=== PATIENT | female | born 1935 | race American Indian/Alaskan Native ===

== ENCOUNTER 2018-11-20 23:50 | Emergency (ER) | payer MEDICARE ==
--- NOTE | 2018-11-21 00:46 | Emergency Department Report ---
HPI - General Chief Complaint: Extremity Injury, Lower Time Seen by Provider: 11/21/18 00:14 - HPI HPI: 83-year-old -[place] female presents to the emergency department from home the complaint of bilateral lower extremity pain and swelling. Overall, the patient says that this has been going on for the past month. However it has gotten much worse over the past 6 hours. The right leg is worse than the left. She has bilateral intermittent lower extremity swelling. She denies any skin color change, rash, warmth, lesions. She has a past medical history of asthma, DVT from 4 years ago not on anticoagulation, and some type of "heart problems." She has taken some Tylenol for her symptoms with some transient relief. No recent travel or sick contacts at home. ED Past Medical Hx - Past Medical History Previous Medical History?: Yes Hx Deep Vein Thrombosis: Yes Hx Asthma: Yes Additional medical history: heart probs - Surgical History Past Surgical History?: No - Social History Smoking Status: Never Smoker Substance Use Type: None - Medications Home Medications: Home Medications Medication Instructions Recorded Confirmed Last Taken Type Acetaminophen/Codeine [Tylenol 1 tab PO Q8H PRN #10 tab 11/21/18 Unknown Rx /Codeine # 3 tab] ED Review of Systems ROS: Stated complaint: RIGHT LEG CRAMPS X 6HOURS Other details as noted in HPI Comment: All other systems reviewed and negative Constitutional: denies: chills, fever Eyes: denies: eye pain, vision change ENT: denies: ear pain, throat pain Respiratory: denies: cough, shortness of breath Cardiovascular: edema. denies: chest pain Gastrointestinal: denies: abdominal pain, vomiting Genitourinary: denies: dysuria, discharge Musculoskeletal: arthralgia, myalgia Skin: denies: rash, lesions Neurological: denies: headache, weakness Physical Exam - Physical Exam Vital Signs: Vital Signs 11/20/18 23:51 Temperature 98.3 F Pulse Rate 86 Respiratory 18 Rate Blood Pressure 171/67 O2 Sat by Pulse 98 Oximetry Physical Exam: GENERAL: The patient is well-developed well-nourished. HENT: Normocephalic. Atraumatic. Patient has moist mucous membranes. EYES: Extraocular motions are intact. NECK: Supple. Trachea is midline. CHEST/LUNGS: Clear to auscultation. There is no respiratory distress noted. HEART/CARDIOVASCULAR: Regular. There is no tachycardia. There is no murmur. ABDOMEN: Abdomen is soft, nontender. Patient has normal bowel sounds. There is no abdominal distention. SKIN: Skin is warm and dry. 1+ pitting edema to the bilateral lower extremity swelling. NEURO: The patient is awake, alert, and oriented. The patient is cooperative. The patient has no focal neurologic deficits. Normal speech. MUSCULOSKELETAL: There is some tenderness to palpation to the posterior left knee and the right calf. There is no limitation range of motion. ED Course Vital Signs 11/20/18 23:51 Temperature 98.3 F Pulse Rate 86 Respiratory 18 Rate Blood Pressure 171/67 O2 Sat by Pulse 98 Oximetry ED Medical Decision Making - Lab Data Result diagrams: 11/21/18 00:49 11/21/18 00:49 - Radiology Data Radiology results: report reviewed Renal ultrasound. 11/21/2018. HISTORY: Acute renal insufficiency. FINDINGS: Right kidney measures 9.3 cm. Left kidney measures 8.9 cm. Mild fullness is noted at the right renal collecting system. The left kidney contains a 2.3 cm cyst. Incidentally noted is a 2.8 cm splenic cyst. The bladder is moderately distended. IMPRESSION: 1. Mild fullness of the right renal collecting system may be on the basis of bladder distention. 2. Benign-appearing cysts of the left kidney and s pleen. - Medical Decision Making This patient presents to the emergency department with the complaint of bilateral leg pain with right greater than left. On examination she does have some mild pitting edema to bilateral lower extremities. She has tenderness to palpation of the right calf and the posterior left knee. No rash, lesions, fluctuance, warmth, erythema. Patient has no complaints of any shortness of breath, nausea, vomiting, chest pain, back pain. She describes the pains as a cramping discomfort. Some blood work was obtained to search for possible electrolyte abnormalities but instead she was found to have renal insufficiency with a creatinine of 1.7 and a GFR of about 30. Unknown if this is acute kidney injury versus chronic kidney disease but the patient is unaware of any previous diagnosis. A bilateral renal ultrasound was done that showed some mild fullness to the right renal collecting system that could be some mild hydronephrosis and a moderately distended bladder. The patient has known history of some incontinence issues. The urinalysis did not show any urinary tract infection or significant proteinuria. The patient has been set up for an outpatient venous Doppler ultrasound in the morning. If positive, she will be redirected to the emergency department for further evaluation and treatment. If negative, the patient will proceed to follow-up with her primary care physician and has been given a referral for nephrology. She will return to the ER with any worsening of her symptoms or any acute distress. - Differential Diagnosis dehydration, electrolyte abnormalities, CHF, DVT Critical Care Time: No Critical care attestation.: If time is entered above; I have spent that time in minutes in the direct care of this critically ill patient, excluding procedure time. ED Disposition Clinical Impression: Renal insufficiency, Lower extremity edema, Bilateral leg pain Hypertension Qualifiers: Hypertension type: essential hypertension Qualified Code(s): I10 - Essential (primary) hypertension Disposition: - TO HOME OR SELFCARE Is pt being admited?: No Condition: Stable Instructions: Leg Edema (ED), Hypertension (ED), Impaired Kidney Function (ED) Additional Instructions: Please call the number listed on your discharge paperwork to set up an appointment later this morning to go to the outpatient imaging portion of the hospital and have the bilateral leg venous Doppler ultrasound completed to evaluate for a blood clot/DVT. If this test is positive, you will be redirected to the emergency department. Please follow-up with your primary care physician in the next few days. I am giving you a referral for a local log operations coordinator/kidney doctor, Dr. Ontiveros, to follow up regarding your decreased kidney function. Return to the emergency department with any worsening of your symptoms or any acute distress. Take your blood pressure medications as prescribed. Try and stay away from foods are high in salt and caffeinated products. Keep a blood pressure log. Due to your impaired kidney function, do not take any anti-inflammatories such as ibuprofen, Aleve, Advil, naproxen. I am prescribing you a small amount of pain medication for your leg pains. It already has Tylenol in it so please do not take too much extra Tylenol. You have been prescribed a medication that is sedating and therefore should not be taken prior to driving, working, and responsible for children and in no way should be mixed with alcohol of any quantity. Prescriptions: Acetaminophen/Codeine [Tylenol /Codeine # 3 tab] 1 tab PO Q8H PRN #10 tab PRN Reason: Pain , Severe (7-10) Referrals: EDUARDO ONTIVEROS MD [Staff Physician] - 2-3 Days PCP, Your [Other] - 2-3 Days Time of Disposition: 03:59
[2018-11-21 01:11] LABS: Basophils # (Auto) 0.2 K/mm3 (0.0-0.1); Eosinophils # (Auto) 0.3 K/mm3 (0.0-0.4); Eosinophils % (Auto) 3.4 % (0.0-4.3); Hematocrit 29.5 % (30.3-42.9); Hemoglobin 9.9 gm/dl (10.1-14.3); Lymphocytes # (Auto) 1.5 K/mm3 (1.2-5.4); Lymphocytes % (Auto) 15.9 % (13.4-35.0); Mean Corpuscular HGB Conc 34 % (30-34); Mean Corpuscular Volume 83 fl (79-97); Monocytes # (Auto) 0.5 K/mm3 (0.0-0.8); Platelet Count 283 K/mm3 (140-440); Red Blood Count 3.58 M/mm3 (3.65-5.03); Red Cell Distribution Width 17.6 % (13.2-15.2)
[2018-11-21 01:25] LABS: INR 1.08 (0.87-1.13); Partial Thromboplastin Time 29.2 Sec. (24.2-36.6)
[2018-11-21 01:34] LABS: Calcium 10.5 mg/dL (8.4-10.2)
[2018-11-21] MEDS ORDERED: TYLENOL PO ONE (01:39)
--- NOTE | 2018-11-21 02:49 | Ultrasound Report ---
Renal ultrasound. 11/21/2018. HISTORY: Acute renal insufficiency. FINDINGS: Right kidney measures 9.3 cm. Left kidney measures 8.9 cm. Mild fullness is noted at the [facility] renal collecting system. The left kidney contains a 2.3 cm cyst. Incidentally noted is a 2.8 cm splenic cyst. The bladder is moderately distended. IMPRESSION: 1. Mild fullness of the right renal collecting system may be on the basis of bladder distention. 2. Benign-appearing cysts of the left kidney and spleen. Signer Name: Lance Dempsey MD Signed: 11/21/2018 2:45 AM Workstation Name: [id number]
[2018-11-21 03:38] LABS: Bilirubin,Urine NEG (Negative); Blood,Urine NEG (Negative); Color,Urine Straw (Yellow); Urobilinogen,Urine < 2.0 mg/dL (<2.0)
[2018-11-21 03:39] LABS: WBC,Urine < 1.0 /HPF (0.0-6.0)
[2018-11-21 04:06] VITALS: BP 169/73
== END 2018-11-21 04:05 | disposition home or self-care (01) ==
LOC: ED 23:50
DX: N28.9 Disorder of kidney and ureter, unspecified (principal); I10 Essential (primary) hypertension; J45.909 Unspecified asthma, uncomplicated; Z86.718 Personal history of other venous thrombosis and embolism; Z79.899 Other long term (current) drug therapy
CPT/HCPCS: 36415; 76770; 80053; 81001; 82550; 83735; 83880; 85025; 85610; 85730; 99284